=== PATIENT | female | born 1965 | race Caucasian/White ===

== ENCOUNTER 2017-06-27 11:42 | Emergency (ER) | payer OTHER ==
[2017-06-27 12:30] VITALS: BP 114/72
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
== END 2017-06-27 13:32 | disposition home or self-care (01) ==
LOC: UCCORT 11:42
DX: S01.81XA Laceration without foreign body of other part of head, initial encounter (principal); S09.90XA Unspecified injury of head, initial encounter; V19.3XXA Pedal cyclist (driver) (passenger) injured in unspecified nontraffic accident, initial encounter
CPT/HCPCS: 12011; 99201; G0463

== ENCOUNTER 2017-11-20 09:11 | Emergency (ER) | payer OTHER ==
[2017-11-20 09:24] VITALS: BP 120/81
--- NOTE | 2017-11-20 09:57 | UC ---
Complaint Female HPI - HPI Summary HPI Summary: Bladder spasms and hesitancy starting this morning. No abd pain, vomiting, fever or flank pain. - History Of Current Complaint Chief Complaint: UCGU Stated Complaint: URINARY COMPLAINT Time Seen by Provider: 11/20/17 09:30 Hx Obtained From: Patient Hx Last Menstrual Period: 11/13/17 Onset/Duration: Gradual Onset, Lasting Hours Timing: Constant, Lasting Hours Severity Initially: Moderate Severity Currently: Moderate Aggravating Factor(s): Urination Alleviating Factor(s): Nothing Associated Signs And Symptoms: Negative: Fever, Back Pain, Vaginal Bleeding/ Discharge, Vaginal Discharge, Nausea, Vomiting(# Of Episodes =), Genital Swelling, Genital Blisters - Allergies/Home Medications Allergies/Adverse Reactions: Allergies Allergy/AdvReac Type Severity Reaction Status Date / Time No Known Allergies Allergy Verified 11/20/17 09:19 Home Medications: Home Medications Cefadroxil CAP* [Duricef CAP*] 2 tab PO ONCE 11/20/17 [History Confirmed ] PMH/Surg Hx/FS Hx/Imm Hx Previously Healthy: No - prior uti. - Surgical History Surgical History: None - Family History Known Family History: Positive: Other - healthy family without chronic disease, parents living. - Social History Alcohol Use: None Substance Use Type: None Smoking Status (MU): Never Smoked Tobacco - Immunization History Most Recent Tetanus Shot: ~2014 Review of Systems Genitourinary: Frequency, Urgency All Other Systems Reviewed And Are Negative: Yes Physical Exam Triage Information Reviewed: Yes Appearance: Well-Appearing, No Pain Distress, Well-Nourished Vital Signs: Initial Vital Signs Temp 98.5 F 11/20/17 09:20 Pulse 65 11/20/17 09:20 Resp 16 11/20/17 09:20 BP 120/81 11/20/17 09:20 Vital Signs Reviewed: Yes Eyes: Positive: Conjunctiva Clear ENT: Positive: Normal ENT inspection Neck: Positive: Supple, Nontender, No Lymphadenopathy Respiratory: Positive: No respiratory distress, No accessory muscle use. Negative: Crackles, Rhonchi, Stridor, Wheezing Cardiovascular: Positive: No Murmur Abdomen Description: Positive: Nontender, No Organomegaly. Negative: Distended , Guarding Musculoskeletal: Positive: Strength Intact, ROM Intact, No Edema Neurological: Positive: Alert, Muscle Tone Normal. Negative: Fatigued Psychological: Positive: Age Appropriate Behavior Skin: Negative: rashes Complaint Female Dx - Course Course Of Treatment: possible uti. u culture pending. she took one antibiotic this morning. We will empirically treat. - Differential Dx/Diagnosis Provider Diagnoses: uti Discharge - Discharge Plan Condition: Good Disposition: HOME Prescriptions: Nitrofurantoin Monohyd Macro [Macrobid] 100 mg PO BID #20 cap Patient Education Materials: Urinary Tract Infection in Women (ED) Referrals: Sylvia Bermudez NP [Primary Care Provider] - If Needed
== END 2017-11-20 10:01 | disposition home or self-care (01) ==
LOC: UCCORT 09:11
DX: N39.0 Urinary tract infection, site not specified (principal)
CPT/HCPCS: 81003; 84702; 87086; 99212; G0463

== ENCOUNTER 2019-09-07 15:10 | Emergency (ER) | payer OTHER ==
[2019-09-07 15:29] VITALS: BP 123/89
== END 2019-09-07 15:49 | disposition left against medical advice (07) ==
LOC: UCCORT 15:10
DX: S09.90XA Unspecified injury of head, initial encounter (principal); X58.XXXA Exposure to other specified factors, initial encounter; Y92.9 Unspecified place or not applicable; Z53.21 Procedure and treatment not carried out due to patient leaving prior to being seen by health care provider

== ENCOUNTER 2020-01-19 07:18 | Emergency (ER) | payer BC, OTHER ==
[2020-01-19 07:41] VITALS: BP 111/78
--- NOTE | 2020-01-19 08:03 | UC ---
Shoulder Pain HPI - HPI Summary HPI Summary: 54 year old female with shoulder pain/neck pain. patient states that she has had right-sided neck and shoulder pain for about 3-4 days. Patient states she has had this before. Hyacinth on its on. Patient has tried Motrin as well as muscle relaxer with mild relief. Patient also has tried her mother's tramadol with mild relief. No trauma she can think of. She may have slept differently than normal. She is feeling some tightness in the right side of her neck and sometimes a tingling sensation down the arm. No shortness of breath or chest pain. Turning the neck particularly can irritate the symptoms. No weakness in the arm. She states she has had some coldv sensation in the upper extremity but no weakness. Full range of motion of the arm. No weakness she can feel in the arm. Exertion slightly worsened symptoms. She is not feeling anxious like she's dropping anything having concerned with her mobility, coordination or strength. - History of Current Complaint Chief Complaint: UCUpperExtremity Stated Complaint: RIGHT SHOULDER PAIN Time Seen by Provider: 01/19/20 07:57 Hx Obtained From: Patient Hx Last Menstrual Period: may 2019 Onset/Duration: Gradual Onset Pain Intensity: 7 - Allergies/Home Medications Allergies/Adverse Reactions: Allergies Allergy/AdvReac Type Severity Reaction Status Date / Time No Known Allergies Allergy Verified 01/19/20 07:34 Home Medications: Home Medications Cyclobenzaprine TAB* [Flexeril 10 MG TAB*] 10 mg PO BID PRN #14 tab 01/19/20 [Rx ] Ibuprofen TAB* [Advil TAB*] 200 mg PO Q6H PRN 01/19/20 [History Confirmed ] methylPREDNISolone [Medrol Dosepak 4 MG*] 0 mg PO .SEE CHRISSY INSTRUCTION #1 tab [Rx] PMH/Surg Hx/FS Hx/Imm Hx Previously Healthy: Yes - Surgical History Surgical History: None Surgery Procedure, Year, and Place: c section - Family History Known Family History: Positive: Other - healthy family without chronic disease, parents living. - Social History Alcohol Use: None Substance Use Type: None Smoking Status (MU): Never Smoked Tobacco - Immunization History Most Recent Tetanus Shot: ~2014 Review of Systems All Other Systems Reviewed And Are Negative: Yes Musculoskeletal: Positive: Arthralgia. Negative: Decreased ROM, Edema Is Patient Immunocompromised?: No Physical Exam Triage Information Reviewed: Yes Appearance: Well-Appearing, No Pain Distress, Well-Nourished Vital Signs: Initial Vital Signs Temp 98.1 F 01/19/20 07:35 Pulse 54 01/19/20 07:35 Resp 18 01/19/20 07:35 BP 111/78 01/19/20 07:35 Pulse Ox 100 01/19/20 07:35 Vital Signs Reviewed: Yes Eye Exam: Normal Neck exam: Normal Neck: Positive: 1 Respiratory Exam: Normal Cardiovascular Exam: Normal Musculoskeletal Exam: Normal Musculoskeletal: Positive: Strength Intact, ROM Intact, No Edema, Other: - mild right-sided anterior shoulder tenderness to palpation. Full range of motion. Negative Neer's sign. Negative impingement sign. Strength 5 out of 5. Sensation intact. Peripheral pulses brisk. Cervical spine normal. No step- offs. Normal range of motion. No cervical paraspinal tenderness. Neurological Exam: Normal Psychological Exam: Normal Skin Exam: Normal Shoulder Course/Dx - Course Course Of Treatment: patient with right-sided muscle spasm. Having some questionable radiculopathy at times. She has tried already muscle relaxer with anti-inflammatory and some tramadol with some mild relief. Advised to continue with the Motrin/anti- inflammatory and also can consider Tylenol. Given refill of muscle relaxer. Try Medrol Dosepak to see 3 to significant inflammation and potential radiculopathy. She states she may follow up with her chiropractor. I advised if symptoms worsen the emergency room. Given referral to orthopedics. Patient was agreeable to plan as well as Medication. - Differential Dx/Diagnosis Differential Diagnosis/HQI/PQRI: Rotator Cuff Injury, Sprain, Strain, Tendonitis , Thoracic Outlet Syndrome Provider Diagnosis: Shoulder pain, Muscle spasm Discharge ED - Sign-Out/Discharge Documenting (check all that apply): Patient Departure All imaging exams completed and their final reports reviewed: No Studies - Discharge Plan Condition: Good Disposition: HOME Prescriptions: Cyclobenzaprine TAB* [Flexeril 10 MG TAB*] 10 mg PO BID PRN #14 tab PRN Reason: Spasms methylPREDNISolone [Medrol Dosepak 4 MG*] 0 mg PO .SEE CHRISSY INSTRUCTION #1 tab Patient Education Materials: Muscle Spasm (ED), Shoulder Pain (ED) Referrals: Agusto Perdomo MD [Medical Doctor] - 3 Days No Primary Care Phys,NOPCP [Primary Care Provider] - - Billing Disposition and Condition Condition: GOOD Disposition: Home
== END 2020-01-19 08:33 | disposition home or self-care (01) ==
LOC: UCCORT 07:18
DX: M25.511 Pain in right shoulder (principal); M62.838 Other muscle spasm
CPT/HCPCS: 99212; G0463